=== PATIENT | male | born 1975 | race Caucasian/White ===

== ENCOUNTER 2018-11-10 11:53 | Emergency (ER) | payer BC ==
--- NOTE | 2018-11-10 12:18 | RAD REPORT ---
EXAM DESCRIPTION: CT - Ct Stroke Brain Wo Cont - 11/10/2018 12:11 pm CLINICAL HISTORY: Stroke protocol study, right face numbness, left leg and arm weakness, difficulty speaking, altered mental status CLINICAL HISTORY: None. TECHNIQUE: Axial 5 millimeter thick images of the head were obtained without IV contrast. All CT scans are performed using dose optimization technique as appropriate and may include automated exposure control or mA/KV adjustment according to patient size. FINDINGS: No intracranial hemorrhage, mass, or cerebral edema. No acute infarction identifiable. No extra-axial fluid collections. Moody matter-white matter differentiation is preserved. Visualized portions of the mastoid air cells, paranasal sinuses, and orbits are unremarkable. Findings telephoned to the referring physician 12:13 p.m. IMPRESSION: No CT evidence of acute intracranial process. Ongoing concerns for acute CVA can be addressed with follow-up MRI imaging.
[2018-11-10 12:21] LABS: Absolute Lymphocytes (CBC) 2.4 K/uL (0.7-4.9); Basophils % 1.1 % (0-1.3); Hematocrit 43.1 % (39.6-49.0); Lymphocytes % 34.4 % (15.3-44.8); MPV 9.4 fL (7.6-11.3); RBC Red Blood Cell Count 4.86 M/uL (4.33-5.43)
[2018-11-10 12:26] LABS: Protime INR 0.89
[2018-11-10] MEDS ORDERED: THIAMINE 200 MG/2 ML INJ ONE (12:49)
[2018-11-10] MEDS ORDERED: FOLIC ACID 5 MG/ML VIAL ONE (12:49)
[2018-11-10] MEDS ORDERED: NA CHLORIDE 0.9% 1,000 ML ONE (12:50)
[2018-11-10 12:51] LABS: ALT/SGPT 50 U/L (12-78); AST/SGOT 21 U/L (15-37); Albumin 4.4 g/dL (3.4-5.0); Alkaline Phosphatase 43 U/L (45-117); BUN Blood Urea Nitrogen 17 mg/dL (7-18); Bicarbonate 27 mmol/L (21-32); Bilirubin Direct 0.1 mg/dL (0-0.2); Bilirubin Total 0.4 mg/dL (0.2-1.0); CKMB Creatine Kinase MB 2.2 ng/mL (0.3-3.6); Creatine Phosphokinase 203 U/L (39-308); Glucose Level 124 mg/dL (74-106); Magnesium 2.1 mg/dL (1.8-2.4); Potassium 3.6 mmol/L (3.5-5.1); Protein, Total 8.1 g/dL (6.4-8.2); Sodium Level 138 mmol/L (136-145); Troponin (Emerg Dept Use Only) < 0.02 ng/mL (0.0-0.045)
[2018-11-10 12:59] LABS: Barbiturates NEGATIVE (NEGATIVE); Benzodiazepines NEGATIVE (NEGATIVE); Cocaine NEGATIVE (NEGATIVE); METHAMPHETAM NEGATIVE (NEGATIVE); Methadone NEGATIVE (NEGATIVE); Opiates NEGATIVE (NEGATIVE); Phencyclidine NEGATIVE (NEGATIVE); THC Cannibis NEGATIVE (NEGATIVE)
--- NOTE | 2018-11-10 13:01 | RAD REPORT ---
EXAM DESCRIPTION: RAD - Chest Single View - 11/10/2018 12:46 pm CLINICAL HISTORY: Cough, chest pain and pressure, Stroke protocol chest film COMPARISON: None. TECHNIQUE: AP portable chest image was obtained 1225 hours . FINDINGS: Lungs are clear. Heart and vasculature are normal. No measurable pleural effusion and no p neumothorax. No acute bony abnormality seen. No acute aortic findings suspected. IMPRESSION: No acute cardiopulmonary process.
--- NOTE | 2018-11-10 13:35 | EDPHYS ---
Physician Documentation [facility] Name: Pato Dennison Age: 43 yrs Sex: Male : 1975 Arrival Date: 11/10/2018 Time: 11:58 Bed 4 Private MD: RUTHIE Physician Mynor Talbert HPI: 11/10 12:23 This 43 yrs old Male presents to ER via Ambulatory with complaints of High diana Blood Pressure, Numbness. 12:23 This 43 yrs old Male presents to ER via Ambulatory with complaints of High diana Blood Pressure, Numbness. 12:23 The patient has elevated blood pressure and discovered this at home. Onset: The diana symptoms/episode began/occurred just prior to arrival, this morning. Modifying factors: The symptoms are aggravated by activity, The symptoms are alleviated by remaining still. The patient has experienced similar episodes in the past, multiple times. Historical: - Allergies: 12:10 Bacitracin; sv 12:10 Methoparabin; sv - Home Meds: 12:10 Nexium Oral [Active]; levothyroxine 50 mcg tab 1 tab once daily [Active]; aspirin 81 mg sv Oral chew once daily [Active]; lisinopril-hydrochlorothiazide 20-12.5 mg oral tab 1 tab once daily [Active]; fenofibrate 54 mg oral tab 1 tab once daily [Active]; - PMHx: 12:10 Hypertension; Depression; Anxiety; Thyroid problem; Borderline DM; sv - PSHx: 12:10 Hernia repair; sv - Immunization history:: Adult Immunizations up to date. - Social history:: Smoking status: Patient/guardian denies using tobacco, the patient reports quitting approximately 7 years ago. - Family history:: not pertinent. - Ebola Screening: : No symptoms or risks identified at this time. ROS: 12:24 Constitutional: Negative for fever, chills, and weight loss, Eyes: Negative for injury, diana pain, redness, and discharge, ENT: Negative for injury, pain, and discharge, Neck: Negative for injury, pain, and swelling, Cardiovascular: Negative for chest pain, palpitations, and edema, Respiratory: Negative for shortness of breath, cough, wheezing, and pleuritic chest pain, Abdomen/GI: Negative for abdominal pain, nausea, vomiting, diarrhea, and constipation, Back: Negative for injury and pain, : Negative for injury, bleeding, discharge, and swelling, MS/Extremity: Negative for injury and deformity, Skin: Negative for injury, rash, and discoloration, Psych: Negative for depression, anxiety, suicide ideation, homicidal ideation, and hallucinations, Allergy/Immunology: Negative for hives, rash, and allergies, Endocrine: Negative for neck swelling, polydipsia, polyuria, polyphagia, and marked weight changes, Hematologic/Lymphatic: Negative for swollen nodes, abnormal bleeding, and unusual bruising. 12:24 Neuro: Positive for numbness, of the face, right arm and right leg. Exam: 12:24 Radiologist reports: sah diana 12:24 Radiologist reports: neg 12:24 Constitutional: This is a well developed, well nourished patient who is awake, alert, and in no acute distress. Head/Face: Normocephalic, atraumatic. Eyes: Pupils equal round and reactive to light, extra-ocular motions intact. Lids and lashes normal. Conjunctiva and sclera are non-icteric and not injected. Cornea within normal limits. Periorbital areas with no swelling, redness, or edema. ENT: Nares patent. No nasal discharge, no septal abnormalities noted. Tympanic membranes are normal and external auditory canals are clear. Oropharynx with no redness, swelling, or masses, exudates, or evidence of obstruction, uvula midline. Mucous membranes moist. Neck: Trachea midline, no thyromegaly or masses palpated, and no cervical lymphadenopathy. Supple, full range of motion without nuchal rigidity, or vertebral point tenderness. No Meningismus. Chest/axilla: Normal chest wall appearance and motion. Nontender with no deformity. No lesions are appreciated. Cardiovascular: Regular rate and rhythm with a normal S1 and S2. No gallops, murmurs, or rubs. Normal PMI, no JVD. No pulse deficits. Respiratory: Lungs have equal breath sounds bilaterally, clear to auscultation and percussion. No rales, rhonchi or wheezes noted. No increased work of breathing, no retractions or nasal flaring. Abdomen/GI: Soft, non-tender, with normal bowel sounds. No distension or tympany. No guarding or rebound. No evidence of tenderness throughout. Back: No spinal tenderness. No costovertebral tenderness. Full range of motion. Male : Normal genitalia with no discharge or lesions. Skin: Warm, dry with normal turgor. Normal color with no rashes, no lesions, and no evidence of cellulitis. Vital Signs: 12:10 BP 171 / 101; Pulse 70; Resp 18; Temp 98.1(TE); Pulse Ox 98% on R/A; Weight 79.38 kg; ss Height 5 ft. 5 in. (165.10 cm); Pain 0/10; 12:37 BP 155 / 102; Pulse 58; Resp 16 S; Pulse Ox 100% on R/A; aa5 13:30 BP 159 / 102; Pulse 55; Resp 16 S; Pulse Ox 100% on R/A; aa5 15:00 BP 162 / 95; Pulse 54; Resp 18 S; Temp 98.0(TE); Pulse Ox 100% on R/A; Pain 0/10; aa5 12:10 Body Mass Index 29.12 (79.38 kg, 165.10 cm) ss NIH Stroke Scale Scores: 12:10 NIHSS Score: 0 12:24 NIHSS Score: 0 [facility] 12:28 NIHSS Score: 0 aa5 Norris Coma Score: 12:10 Eye Response: spontaneous(4). Verbal Response: oriented(5). Motor Response: obeys commands(6). Total: 15. MDM: 12:01 Patient medically screened. [facility] 12:26 Data reviewed: vital signs, nurses notes, lab test result(s), EKG, radiologic studies, [facility] CT scan, plain films. 11/10 12:11 Order name: Ckmb; Complete Time: 13:34 [facility] 11/10 12:11 Order name: CPK; Complete Time: 13:34 [facility] 11/10 12:11 Order name: Magnesium; Complete Time: 13:34 [facility] 11/10 12:11 Order name: Troponin (emerg Dept Use Only); Complete Time: 13:34 [facility] 11/10 12:11 Order name: UDS; Complete Time: 13:07 [facility] 11/10 12:11 Order name: Basic Metabolic Panel; Complete Time: 13:07 [facility] 11/10 12:11 Order name: CBC with Diff; Complete Time: 12:45 [facility] 11/10 12:11 Order name: Protime (+inr); Complete Time: 12:45 [facility] 11/10 12:11 Order name: Ptt, Activated; Complete Time: 12:45 [facility] 11/10 12:11 Order name: Acetaminophen; Complete Time: 13:34 [facility] 11/10 12:11 Order name: ETOH Level; Complete Time: 12:45 [facility] 11/10 12:11 Order name: Hepatic Function; Complete Time: 13:34 [facility] 11/10 12:11 Order name: Salicylate; Complete Time: 14:44 [facility] 11/10 12:44 Order name: Sed Rate; Complete Time: 13:34 [facility] 11/10 12:02 Order name: CT Stroke Brain w/o Contrast; Complete Time: 12:45 11/10 12:11 Order name: Stroke CXR 1 View; Complete Time: 13:07 [facility] 11/10 12:11 Order name: EKG; Complete Time: 12:15 [facility] 11/10 12:11 Order name: Accucheck; Complete Time: 12:29 [facility] 11/10 12:11 Order name: Cardiac monitoring; Complete Time: 12:25 [facility] 11/10 12:11 Order name: EKG - Nurse/Tech; Complete Time: 12:25 [facility] 11/10 12:11 Order name: IV Saline Lock; Complete Time: 12:25 [facility] 11/10 12:11 Order name: Labs collected and sent; Complete Time: 12:25 [facility] 11/10 12:11 Order name: NPO; Complete Time: 12:25 [facility] 11/10 12:44 Order name: CRP; Complete Time: 13:34 [facility] 11/10 12:45 Order name: US Carotid Artery Bilateral; Complete Time: 14:44 [facility] 11/10 13:14 Order name: Urine Dipstick--Ancillary (enter results); Complete Time: 14:44 11/10 12:11 Order name: O2 Per Protocol; Complete Time: 12:25 [facility] 11/10 12:11 Order name: O2 Sat Monitoring; Complete Time: 12:25 [facility] 11/10 12:11 Order name: Stroke Swallow Screen; Complete Time: 12:25 [facility] 11/10 12:11 Order name: Urine Dipstick-Ancillary (obtain specimen); Complete Time: 14:09 [facility] Administered Medications: 12:28 Drug: foLIC Acid 1 mg Route: IVPB; Site: right antecubital; aa5 12:28 Drug: Thiamine 100 mg Route: IV; Rate: bolus; Site: right antecubital; aa5 12:28 Drug: NS 0.9% 1000 ml Route: IV; Rate: 1 bolus; Site: right antecubital; aa5 13:35 Follow up: IV Status: Completed infusion; IV Intake: 1000ml 13:35 Drug: Aspirin 162 mg Route: PO; aa5 15:10 Follow up: Response: No adverse reaction aa5 Point of Care Testing: Blood Glucose: 12:10 Blood Glucose: 128 mg/dL; ss Ranges: Critical Glucose Levels:Adult <50 mg/dl or >400 mg/dl <40 mg/dl or >180 mg/dl Disposition: 11/10/18 13:35 Discharged to Home. Impression: Essential (primary) hypertension, Transient cerebral ischemic attack, unspecified. - Condition is Stable. - Discharge Instructions: Hypertension, Stroke Prevention, Transient Ischemic Attack, Hypertension, [id number], How to Take Your Blood Pressure, [id number], Transient Ischemic Attack, [id number], Aspirin and Your Heart, Stroke Prevention, [id number]-hp-[id number], Managing Your Hypertension. - Medication Reconciliation Form, Thank You Letter, Antibiotic Education, Prescription Opioid Use form. - Follow up: Private Physician; When: 2 - 3 days; Reason: Recheck today's complaints, Continuance of care, Re-evaluation by your physician. Follow up: Rudy Cid; When: 1 - 2 days; Reason: Recheck today's complaints, Re-evaluation by your physician. - Problem is new. - Symptoms have improved. NIH Stroke Scale - NIH Stroke Score Date: 11/10/2018 Time: 12:10 Total Score = 0 1a. Level of Consciousness (LOC) - 0(Alert) 1b. Level of Consciousness (LOC) (Year \T\ Age) - 0(Both) 1c. LOC Commands (Open \T\ Closes Eyes/Vineyard Tender) - 0(Both) 2. Best Gaze (Lateral Gaze Paresis) - 0(Normal) 3. Visual Field Loss - 0(No visual loss) 4. Facial Palsy - 0(Normal) 5a. Left Arm: Motor (10-second hold) - 0(No drift) 5b. Right Arm: Motor (10-second hold) - 0(No drift) 6a. Left Leg: Motor (5-second hold - always test supine) - 0(No drift) 6b. Right Leg: Motor (5-second hold - always test supine) - 0(No drift) 7. Limb Ataxia (finger/nose \T\ heel/medeiros - test with eyes open) - 0(Absent) 8. Sensory Loss (pinprick arms/legs/face) - 0(Normal) 9. Best Language: Aphasia (description/naming/reading) - 0(No aphasia) 10. Dysarthria (speech clarity - read or repeat words) - 0(Normal) 11. Extinction and Inattention (visual/tactile/auditory/spatial/personal) - 0(No abnormality) Initials: NIH Stroke Scale - NIH Stroke Score Date: 11/10/2018 Time: 12:24 Total Score = 0 1a. Level of Consciousness (LOC) - 0(Alert) 1b. Level of Consciousness (LOC) (Year \T\ Age) - 0(Both) 1c. LOC Commands (Open \T\ Closes Eyes/Vineyard Tender) - 0(Both) 2. Best Gaze (Lateral Gaze Paresis) - 0(Normal) 3. Visual Field Loss - 0(No visual loss) 4. Facial Palsy - 0(Normal) 5a. Left Arm: Motor (10-second hold) - 0(No drift) 5b. Right Arm: Motor (10-second hold) - 0(No drift) 6a. Left Leg: Motor (5-second hold - always test supine) - 0(No drift) 6b. Right Leg: Motor (5-second hold - always test supine) - 0(No drift) 7. Limb Ataxia (finger/nose \T\ heel/medeiros - test with eyes open) - 0(Absent) 8. Sensory Loss (pinprick arms/legs/face) - 0(Normal) 9. Best Language: Aphasia (description/naming/reading) - 0(No aphasia) 10. Dysarthria (speech clarity - read or repeat words) - 0(Normal) 11. Extinction and Inattention (visual/tactile/auditory/spatial/personal) - 0(No abnormality) Initials: [facility] NIH Stroke Scale - NIH Stroke Score Date: 11/10/2018 Time: 12:28 Total Score = 0 1a. Level of Consciousness (LOC) - 0(Alert) 1b. Level of Consciousness (LOC) (Year \T\ Age) - 0(Both) 1c. LOC Commands (Open \T\ Closes Eyes/Vineyard Tender) - 0(Both) 2. Best Gaze (Lateral Gaze Paresis) - 0(Normal) 3. Visual Field Loss - 0(No visual loss) 4. Facial Palsy - 0(Normal) 5a. Left Arm: Motor (10-second hold) - 0(No drift) 5b. Right Arm: Motor (10-second hold) - 0(No drift) 6a. Left Leg: Motor (5-second hold - always test supine) - 0(No drift) 6b. Right Leg: Motor (5-second hold - always test supine) - 0(No drift) 7. Limb Ataxia (finger/nose \T\ heel/medeiros - test with eyes open) - 0(Absent) 8. Sensory Loss (pinprick arms/legs/face) - 0(Normal) 9. Best Language: Aphasia (description/naming/reading) - 0(No aphasia) 10. Dysarthria (speech clarity - read or repeat words) - 0(Normal) 11. Extinction and Inattention (visual/tactile/auditory/spatial/personal) - 0(No abnormality) Initials: aa5 Signatures: Dispatcher [employer] Savanna Buchanan RN RN sv Anderson, Corey, MD MD cha Calderon, Audri, RN RN aa5 Clara Solitario RN RN ss Corrections: (The following items were deleted from the chart) 15:15 13:35 11/10/2018 13:35 Discharged to Home. Impression: Essential (primary) aa5 hypertension; Transient cerebral ischemic attack, unspecified. Condition is Stable. Discharge Instructions: Hypertension, Stroke Prevention, Transient Ischemic Attack, Hypertension, [id number], How to Take Your Blood Pressure, [id number], Transient Ischemic Attack, [id number], Aspirin and Your Heart, Stroke Prevention, [id number]-[id number], Managing Your Hypertension. Forms are Medication Reconciliation Form, Thank You Letter, Antibiotic Education, Prescription Opioid Use. Follow up: Private Physician; When: 2 - 3 days; Reason: Recheck today's complaints, Continuance of care, Re-evaluation by your physician. Follow up: Rudy Cid; When: 1 - 2 days; Reason: Recheck today's complaints, Re-evaluation by your physician. Problem is new. Symptoms have improved. diana
--- NOTE | 2018-11-10 13:35 | ER ---
Nurse's Notes [facility] Name: Pato Dennison Age: 43 yrs Sex: Male : 1975 Arrival Date: 11/10/2018 Time: 11:58 Bed 4 Private MD: Diagnosis: Essential (primary) hypertension;Transient cerebral ischemic attack, unspecified Presentation: 11/10 11:59 Presenting complaint: Patient states: right face, leg, arm numbness and weakness; "hard sv time getting my words out", confused started this morning at 0900. Reports that he has had intermittent numbness in the past since he was 21 yrs old but "this time it feels different.". Transition of care: patient was not received from another setting of care. Onset of symptoms was November 10, 2018 at 09:00. Risk Assessment: Do you want to hurt yourself or someone else? Patient reports no desire to harm self or others. Initial Sepsis Screen: Does the patient meet any 2 criteria? No. Patient's initial sepsis screen is negative. Care prior to arrival: None. 11:59 Method Of Arrival: Ambulatory sv 11:59 Acuity: SAMPSON 2 sv 11:59 An acute neurological deficit is present. The charge nurse has been notified. sv Pre-hospital glucose is not applicable to this patient. 12:00 Initial Sepsis Screen: Does the patient have a suspected source of infection? No. aa5 Patient's initial sepsis screen is negative. Triage Assessment: 12:00 The onset of the patients symptoms was November 10, 2018 at 09:00. aa5 Stroke Activation: Symptom onset < 3 hours Physician: Stroke Attending; Name: ; Notified At: ; Arrived At: Physician: Chief Stroke Resident; Name: ; Notified At: ; Arrived At: Physician: Stroke Resident; Name: ; Notified At: ; Arrived At: Physician: ED Attending; Name: ; Notified At: ; Arrived At: Physician: ED Resident; Name: ; Notified At: ; Arrived At: Historical: - Allergies: 12:10 Bacitracin; sv 12:10 Methoparabin; sv - Home Meds: 12:10 Nexium Oral [Active]; levothyroxine 50 mcg tab 1 tab once daily [Active]; aspirin 81 mg sv Oral chew once daily [Active]; lisinopril-hydrochlorothiazide 20-12.5 mg oral tab 1 tab once daily [Active]; fenofibrate 54 mg oral tab 1 tab once daily [Active]; - PMHx: 12:10 Hypertension; Depression; Anxiety; Thyroid problem; Borderline DM; sv - PSHx: 12:10 Hernia repair; sv - Immunization history:: Adult Immunizations up to date. - Social history:: Smoking status: Patient/guardian denies using tobacco, the patient reports quitting approximately 7 years ago. - Family history:: not pertinent. - Ebola Screening: : No symptoms or risks identified at this time. Screenin:10 Patient has been NPO before screening. The patient is alert, able to follow commands. ss The patient does not exhibit slurred or garbled speech The patient is not exhibiting difficulty speaking. The patient does not exhibit difficulty understanding words. The patient is able to swallow own secretions with no drooling or need for suction. Patient tolerated one teaspoon of water. No drooling, immediate coughing, gurgling, or clearing of the throat was noted. The patient tolerated 90mL of water. No drooling, immediate coughing, gurgling, or clearing of the throat was noted. The patient passed the bedside swallow screening. Oral medications may be given as ordered. Contact Physician for further diet orders. 12:21 Abuse screen: Denies threats or abuse. Denies injuries from another. Nutritional ss screening: No deficits noted. Tuberculosis screening: Never had TB. Fall Risk None identified. Assessment: 11:59 Reassessment: Code Stroke called. sv 12:02 Reassessment: In CT at this time. PT is awake, alert and obeys commands. Denies pain. ss Patient was able to scoot himself over to CT with ease. 12:10 Reassessment: back from CT. General: Appears in no apparent distress. comfortable, ss Behavior is calm, cooperative. General: "This numbness and tingling is nothing new, it's been going off and on for 20+ years, but my blood pressure is up and it's got me a little concerned.". Pain: Denies pain. Neuro: Level of Consciousness is awake, alert, obeys commands, Oriented to person, place, time, situation, White Lead Grinder are equal bilaterally Moves all extremities. Full function Gait is steady, Speech is normal, Facial symmetry appears normal, Pupils are PERRLA, Intact Patient reports tingling to R side of face, arm and leg that began at 0900, has been going on for the past 20 years. . Reports "I feel a little confused.". Denies weakness blurred vision headache photophobia. Cardiovascular: Capillary refill < 3 seconds is brisk in bilateral fingers Patient's skin is warm and dry. Respiratory: Airway is patent Trachea midline Respiratory effort is even, unlabored, Respiratory pattern is regular, symmetrical, Breath sounds are clear bilaterally. GI: Abdomen is non-distended, Patient currently denies abdominal pain, diarrhea, nausea, vomiting. : No signs and/or symptoms were reported regarding the genitourinary system. EENT: Oral mucosa is moist. Derm: Skin is intact, is healthy with good turgor, Skin is dry, Skin is pink, warm \\T\\ dry. normal. Musculoskeletal: Circulation, motion, and sensation intact. Range of motion: intact in all extremities. 12:28 General: Appears comfortable, Behavior is calm, cooperative. Pain: Denies pain. Neuro: aa5 Level of Consciousness is awake, alert, obeys commands, Oriented to person, place, time, situation, White Lead Grinder are equal bilaterally Moves all extremities. Speech is normal, Facial symmetry appears normal, Pupils are PERRLA, Intact Reports generalized weakness. . Cardiovascular: Heart tones S1 S2 present Patient's skin is warm and dry. Rhythm is sinus bradycardia. Respiratory: Airway is patent Respiratory effort is even, unlabored, Respiratory pattern is regular, symmetrical, Breath sounds are clear bilaterally. GI: Abdomen is non-distended, Bowel sounds present X 4 quads. Abd is soft and non tender X 4 quads. : No signs and/or symptoms were reported regarding the genitourinary system. EENT: No signs and/or symptoms were reported regarding the EENT system. Derm: Skin is pink, warm \\T\\ dry. Musculoskeletal: Range of motion: intact in all extremities. 12:28 T-PA (Activase) Screening: Contraindications: Rapidly improving condition or minor aa5 deficit: Yes. 12:30 VAN Scoring: Arm Drift: Patients demonstrates NO arm weakness. Patient is VAN Negative. aa5 Patient has been NPO before screening. The patient is alert, and able to follow commands. The patient does not exhibit slurred or garbled speech. The patient is not exhibiting difficulty speaking. The patient does not exhibit difficulty understanding words. The patient is able to swallow own secretions with no drooling or need for suction. Patient tolerated one teaspoon of water. No drooling, immediate coughing, gurgling, or clearing of the throat was noted. The patient tolerated 90mL of water. No drooling, immediate coughing, gurgling, or clearing of the throat was noted. The patient passed the bedside swallow screening. Oral medications may be given as ordered. Contact Physician for further diet orders. Provider notified of bedside swallow screening results: Mynor Talbetr MD. 13:30 Reassessment: Patient is alert, oriented x 3, equal unlabored respirations, skin aa5 warm/dry/pink. Patient denies pain at this time. Denies any symptoms at this time . 13:30 Cardiovascular: Rhythm is sinus bradycardia. aa5 13:45 Reassessment: Patient is up for discharge at this time, however awaiting carotid US to ss be obtained. US at bedside at this time. 14:15 Reassessment: Patient is alert, oriented x 3, equal unlabored respirations, skin aa5 warm/dry/pink. Pt ambulatory to restroom with steady gait. . 15:10 Reassessment: Patient is alert, oriented x 3, equal unlabored respirations, skin aa5 warm/dry/pink. Vital Signs: 12:10 BP 171 / 101; Pulse 70; Resp 18; Temp 98.1(TE); Pulse Ox 98% on R/A; Weight 79.38 kg; Height 5 ft. 5 in. (165.10 cm); Pain 0/10; 12:37 BP 155 / 102; Pulse 58; Resp 16 S; Pulse Ox 100% on R/A; aa5 13:30 BP 159 / 102; Pulse 55; Resp 16 S; Pulse Ox 100% on R/A; aa5 15:00 BP 162 / 95; Pulse 54; Resp 18 S; Temp 98.0(TE); Pulse Ox 100% on R/A; Pain 0/10; aa5 12:10 Body Mass Index 29.12 (79.38 kg, 165.10 cm) Norris Coma Score: 12:10 Eye Response: spontaneous(4). Verbal Response: oriented(5). Motor Response: obeys ss commands(6). Total: 15. NIH Stroke Scale Scores: 12:10 NIHSS Score: 0 ss 12:24 NIHSS Score: 0 diana 12:28 NIHSS Score: 0 aa5 ED Course: 11:58 Patient arrived in ED. as 11:[address] via stretcher. sv 12:01 Mynor Talbert MD is Attending Physician. diana 12:08 Triage completed. sv 12:08 Patient moved back from CT. sv 12:09 Soco Rooney, LARS is Primary Nurse. aa5 12:10 Arm band placed on right wrist. ss 12:10 monitoring and evaluation advisor on. Pulse ox on. NIBP on. ss 12:12 Inserted saline lock: 20 gauge in right antecubital area, using aseptic technique. ss Blood collected. Patient maintains SpO2 saturation greater than 95% on room air. 12:14 CT Stroke Brain w/o Contrast In Process Unspecified. EDMS 12:22 Patient has correct armband on for positive identification. Bed in low position. Call ss light in reach. Side rails up X 1. 12:46 Stroke CXR 1 View In Process Unspecified. EDMS 12:55 Initial lab(s) drawn, by ky, sent to lab. jp3 13:00 Salicylate Sent. jp3 13:34 Rudy Cid MD is Referral Physician. diana 14:14 US Carotid Artery Bilateral In Process Unspecified. EDMS 14:14 Ultrasound completed. Patient tolerated well. sg3 15:10 IV discontinued, intact, bleeding controlled, No redness/swelling at site. Pressure aa5 dressing applied. 15:10 No provider procedures requiring assistance completed. aa5 Administered Medications: 12:28 Drug: foLIC Acid 1 mg Route: IVPB; Site: right antecubital; aa5 12:28 Drug: Thiamine 100 mg Route: IV; Rate: bolus; Site: right antecubital; aa5 12:28 Drug: NS 0.9% 1000 ml Route: IV; Rate: 1 bolus; Site: right antecubital; aa5 13:35 Follow up: IV Status: Completed infusion; IV Intake: 1000ml aa5 13:35 Drug: Aspirin 162 mg Route: PO; aa5 15:10 Follow up: Response: No adverse reaction aa5 Point of Care Testing: Blood Glucose: 12:10 Blood Glucose: 128 mg/dL; ss Ranges: Intake: 13:35 IV: 1000ml; Total: 1000ml. aa5 Outcome: 13:35 Discharge ordered by . diana 15:10 Discharged to home ambulatory, with significant other. aa5 15:10 Condition: stable 15:10 Discharge instructions given to patient, significant other, Instructed on discharge instructions, follow up and referral plans. Demonstrated understanding of instructions, follow-up care. 15:15 Patient left the ED. aa5 NIH Stroke Scale - NIH Stroke Score Date: 11/10/2018 Time: 12:10 Total Score = 0 1a. Level of Consciousness (LOC) - 0(Alert) 1b. Level of Consciousness (LOC) (Year \\T\\ Age) - 0(Both) 1c. LOC Commands (Open \\T\\ Closes Eyes/Porter Baggage) - 0(Both) 2. Best Gaze (Lateral Gaze Paresis) - 0(Normal) 3. Visual Field Loss - 0(No visual loss) 4. Facial Palsy - 0(Normal) 5a. Left Arm: Motor (10-second hold) - 0(No drift) 5b. Right Arm: Motor (10-second hold) - 0(No drift) 6a. Left Leg: Motor (5-second hold - always test supine) - 0(No drift) 6b. Right Leg: Motor (5-second hold - always test supine) - 0(No drift) 7. Limb Ataxia (finger/nose \\T\\ heel/medeiros - test with eyes open) - 0(Absent) 8. Sensory Loss (pinprick arms/legs/face) - 0(Normal) 9. Best Language: Aphasia (description/naming/reading) - 0(No aphasia) 10. Dysarthria (speech clarity - read or repeat words) - 0(Normal) 11. Extinction and Inattention (visual/tactile/auditory/spatial/personal) - 0(No abnormality) Initials: NIH Stroke Scale - NIH Stroke Score Date: 11/10/2018 Time: 12:24 Total Score = 0 1a. Level of Consciousness (LOC) - 0(Alert) 1b. Level of Consciousness (LOC) (Year \\T\\ Age) - 0(Both) 1c. LOC Commands (Open \\T\\ Closes Eyes/Porter Baggage) - 0(Both) 2. Best Gaze (Lateral Gaze Paresis) - 0(Normal) 3. Visual Field Loss - 0(No visual loss) 4. Facial Palsy - 0(Normal) 5a. Left Arm: Motor (10-second hold) - 0(No drift) 5b. Right Arm: Motor (10-second hold) - 0(No drift) 6a. Left Leg: Motor (5-second hold - always test supine) - 0(No drift) 6b. Right Leg: Motor (5-second hold - always test supine) - 0(No drift) 7. Limb Ataxia (finger/nose \\T\\ heel/emdeiros - test with eyes open) - 0(Absent) 8. Sensory Loss (pinprick arms/legs/face) - 0(Normal) 9. Best Language: Aphasia (description/naming/reading) - 0(No aphasia) 10. Dysarthria (speech clarity - read or repeat words) - 0(Normal) 11. Extinction and Inattention (visual/tactile/auditory/spatial/personal) - 0(No abnormality) Initials: [facility] NIH Stroke Scale - NIH Stroke Score Date: 11/10/2018 Time: 12:28 Total Score = 0 1a. Level of Consciousness (LOC) - 0(Alert) 1b. Level of Consciousness (LOC) (Year \\T\\ Age) - 0(Both) 1c. LOC Commands (Open \\T\\ Closes Eyes/Porter Baggage) - 0(Both) 2. Best Gaze (Lateral Gaze Paresis) - 0(Normal) 3. Visual Field Loss - 0(No visual loss) 4. Facial Palsy - 0(Normal) 5a. Left Arm: Motor (10-second hold) - 0(No drift) 5b. Right Arm: Motor (10-second hold) - 0(No drift) 6a. Left Leg: Motor (5-second hold - always test supine) - 0(No drift) 6b. Right Leg: Motor (5-second hold - always test supine) - 0(No drift) 7. Limb Ataxia (finger/nose \\T\\ heel/medeiros - test with eyes open) - 0(Absent) 8. Sensory Loss (pinprick arms/legs/face) - 0(Normal) 9. Best Language: Aphasia (description/naming/reading) - 0(No aphasia) 10. Dysarthria (speech clarity - read or repeat words) - 0(Normal) 11. Extinction and Inattention (visual/tactile/auditory/spatial/personal) - 0(No abnormality) Initials: aa5 Signatures: Dispatcher [employer] EDTX Saadia, Savanna, LARS RN Mynor Sanchez MD MD cha Martinez, Amelia as Calderon, Audri, LARS RN aa5 Clara Solitaroi RN RN ss Farzana Nixon 3 Olman Roth jp3
[2018-11-10] MEDS ORDERED: ASPIRIN 81 MG CHEWABLE TABLET ONE (13:47)
[2018-11-10 13:55] LABS: Urine Blood NEGATIVE (NEG); Urine Glucose NEGATIVE (NEG); Urine Protein NEGATIVE (NEG); Urine Specific Gravity 1.015 (1.005-1.030); Urine pH 6.5 (5.0-7.0)
--- NOTE | 2018-11-10 14:28 | RAD REPORT ---
EXAM DESCRIPTION: - CP - 11/10/2018 2:11 pm CLINICAL HISTORY: Dizziness, TIA COMPARISON: None. TECHNIQUE: Real-time sonographic evaluation of both carotid systems was performed. Moody scale and Do ppler interrogation were performed with waveform tracing bilaterally. FINDINGS: Normal high resistance waveforms are noted in both external carotid arteries. The common c arotid arteries and internal carotid arteries show normal low resistance waveforms. Minimal plaquing changes are present in the right carotid bulb without luminal narrowing. No other si gnificant plaquing changes are seen. There is no dissection. Peak systolic and end diastolic velocity values and the ICA/CCA ratios are in the non-hemodynamically significant range. Right vertebral artery antegrade flow is seen. Left vertebral artery was not well visualized. Velocity values and ratios were recorded and are retained in the patient's imaging records. IMPRESSION: No significant atherosclerotic changes noted. No evidence of a hemodynamically significant stenosis. Left vertebral artery was not adequately visualized.
--- NOTE | 2018-11-11 07:41 | EKG ---
Test Date: 2018-11-10 Test Time: 12:20:03 Duct Layer Helper: NITHIN MEASUREMENT RESULTS: Intervals: Rate: 60 [place]: 148 QRSD: 88 QT: 374 QTc: 374 Star: P: 30 NY: 148 QRS: 14 T: 22 INTERPRETIVE STATEMENTS: Normal sinus rhythm Normal ECG No previous ECG available for comparison Electronically Signed On 11-11-18 07:40:58 CDT by Randy Lehman
== END 2018-11-10 15:15 | disposition home or self-care (01) ==
LOC: ER 11:53
DX: G45.9 Transient cerebral ischemic attack, unspecified (principal); I10 Essential (primary) hypertension; E11.9 Type 2 diabetes mellitus without complications; F41.9 Anxiety disorder, unspecified; F32.9 Major depressive disorder, single episode, unspecified; E07.9 Disorder of thyroid, unspecified; Z79.82 Long term (current) use of aspirin; Z88.1 Allergy status to other antibiotic agents; Z88.5 Allergy status to narcotic agent
CPT/HCPCS: 36415; 70450; 71045; 80048; 80076; 80307; 80320; 80329; 81003; 82550; 82553; 82962; 83735; 84484; 85025; 85610; 85652; 85730; 86140; 93005; 93880; 96361; 96374; 96375; 99285; J3411; J7030